=== PATIENT | male | born 1990 | race Caucasian/White ===

== ENCOUNTER 2017-01-07 16:18 | Emergency (ER) | payer SELFPAY ==
[2017-01-07 16:23] VITALS: BP 157/91; BMI 34.4
--- NOTE | 2017-01-07 16:55 | DR.GENAD ---
HPI - PCP Primary Care Physician: nfd - Complaint/Symptoms Chief Complaint Doctors Comments: Neck pain for 5 days, no trauma, upon awakening one day notice pain in right side of neck. Pain is 8/10 in severity, quality sharp, duration five days,worse with flexion,extension Chief Complaint:: patient woke up 5 days ago and had pain in his neck and right shoulder. he stated the pain has not gotton any better. - Source History Provided: Patient - Mode of Arrival Mode of Arrival: Ambulatory - Timing Onset of Chief Complaint: 01/03/17 PMH - PMH Past Medical History: No Past Surgical History: No - Family History History of Family Medical Conditions: No - Social History Does patient currently use any type of tobacco product: Yes Have you used tobacco products in the last 12 months: Yes Type of Tobacco Use: Cigarettes How many years tobacco product used: 6 Does any household member use tobacco: Yes Alcohol Use: None Do you use any recreational Drugs:: No Lives With: Family Lives Where: Home - infectious screening In the last 2 months have you had wt loss of >10#?: NO Have you had fever, night sweats or hemotysis?: No Have you traveled outside the country in the last 6 months?: No Isolation: Standard ROS - Review of Systems Eyes: No Symptoms Reported ENTM: No Symptoms Reported Respiratoy: No Symptoms Reported Cardiovascular: No Symptoms Reported Gastrointestinal/Abdominal: No Symptoms Reported Genitourinary: No Symptoms Reported Neurological: No Symptoms Reported Musculoskeletal: Neck (pain for five days) Integumentary: No Symptoms Reported Hematologic/Lymphatic: No Symptoms Reported Endocrine: No Symptoms Reported Psychiatric: No Symptoms Reported All Other Systems: Reviewed and Negative PE - Vital Signs Vitals: Temperature 98.6 F Pulse Rate 110 Respiratory Rate 16 Blood Pressure 157/91 O2 Sat by Pulse Oximetry 98 - General Limitations: No Limitations General Appearance: Alert, In No Apparent Distress - Head Head Exam: Atraumatic - Eyes Eye exam: Normal Appearance, PERRL, EOMI - ENT ENT Exam: Normal Exam External Ear Exam: Normal External Inspection TM/Canal Exam: Bilateral Normal Nose Exam: Normal Nose Exam, Sinus Tenderness Mouth Exam: Normal Inspection Throat Exam: Normal Inspection - Neck Neck Exam: Other (pain with ROM) - Chest Chest Inspection: Normal Inspection, Symmetric Chest Wall Rise - Respiratory Respiratory Exam: Normal Lung Sounds Bilat Respiratory Exam: Bilateral Clear to Auscultation - Cardiovascular Cardiovascular Exam: Regular Rate, Normal Rhythm, Bradycardia - Abdominal Exam Abdominal Exam: Normal Inspection, Normal Bowel Sounds Abdominal Tenderness: negative: RUQ, RLQ, LUQ, LLQ, Epigastrium, Suprapubic, Diffuse, Mild, Moderate, Severe, Other - Extremities Extremities Exam: Normal Inspection, Full ROM - Back Back Exam: Normal Inspection, Full ROM - Neurologic Neurological Exam: Alert, Oriented X3 - Skin Skin Exam: Warm, Dry, Intact ROR - XRAY XRAY Interpreted by: Radiologist (Cervical Spine : No evdence of acute osseous injury to the cervical spine. Straightening of the usual cervical lordosis as described. This finding may be positional or secondary to muscle spasm. No evidence of instability with flexion or extension.) - Diagnosis Discharge Problem: Muscle spasm - Discharge Plan Condition: Stable - Follow ups/Referrals Follow ups/Referrals: [facility],None [Primary Care Provider] - 3 days - Instructions
[2017-01-07] MEDS ORDERED: TORADOL 60 MG VIAL IM ONE (16:57)
[2017-01-07] MEDS ORDERED: TORADOL 60 MG VIAL ONE (16:57)
--- NOTE | 2017-01-07 18:00 | RAD ---
STUDY: CERVICAL SPINE 5 VIEWS History: Neck pain for 5 days. Reduced range of motion. Comparison: None. Findings: There is straightening of the usual cervical lordosis. Vertebral body heights and alignment are other malik within normal limits. There is no evidence of acute fracture or subluxation. Intervertebral disk spaces are fairly well preserved. There is no significant prevertebral soft tissue swelling. The lat eral masses of C1 and the C1/C2 relationship are normal. The odontoid process is intact. There is no evidence of spine instability with flexion or extension. IMPRESSION: 1. No evidence of acute osseous injury to the cervical spine. 2. Straightening of the usual cervical lordosis as described. This finding may be positional or seco ndary to muscle spasm. Clinical correlation is recommended. 3. No evidence of instability with flexion or extension. Reported By:
== END 2017-01-07 18:14 | disposition home or self-care (01) ==
LOC: ER 16:34
DX: M62.838 Other muscle spasm (principal)
CPT/HCPCS: 72050; 96372; 99282; J1885